=== PATIENT | female | born 1955 | race Caucasian/White ===

== ENCOUNTER 2017-07-13 14:03 | Emergency (ER) | payer BC ==
[2017-07-13 14:55] LABS: #Eosinphils 0.1 thou/uL (0.0-0.7); #Lymphocytes 1.2 thou/uL (1.20-3.40); #Monocytes 0.4 thou/uL (0.11-0.59); #Neutrophils 2.4 thou/uL (1.40-6.50); %Basophils 0.6 % (0.0-1.0); %Lymphocytes 30.5 % (21.0-51.0); %Monocytes 8.9 % (0.0-10.0); Hemoglobin 11.9 g/dL (12.0-16.0); Mean Corpuscular HGB CONC 31.5 g/dL (32.0-36.0); Mean Corpuscular Hemoglobin 27.6 pg (27.0-31.0); Mean Corpuscular Volume 87.4 fl (81.0-99.0); Mean Platelet Volume 7.6 fL (7.4-10.4); Platelet Count 163 thou/uL (130-400); RBC Distribution Width 13.2 % (11.5-14.5); Red Blood Cell (RBC) Count 4.32 mill/uL (4.20-5.40); White Blood Cell (WBC) Count 4.1 thou/uL (4.8-10.8)
[2017-07-13 15:05] LABS: ALT (SGPT) 24 U/L (8-55); AST (SGOT) 37 U/L (5-34); Albumin 3.9 g/dL (3.4-4.8); Alkaline Phosphatase 70 U/L (40-150); Anion Gap 16 mmol/L (10-20); BUN (Urea Nitrogen) 15 mg/dL (9.8-20.1); Bilirubin, Total 0.5 mg/dL (0.2-1.2); Calc. Creatinine Clearance 0 mL/min (70-130); Calcium 10.2 mg/dL (7.8-10.44); Carbon Dioxide 22 mmol/L (23-31); Chloride 103 mmol/L (98-107); Estimated GFR-MDRD 52; Globulin 2.8 g/dL (2.4-3.5); Glucose 139 mg/dL (80-115); Lipase 361 U/L (8-78); Magnesium 1.8 mg/dL (1.6-2.6); Potassium 4.4 mmol/L (3.5-5.1); Protein, Total 6.7 g/dL (6.0-8.3); Sodium 137 mmol/L (136-145)
[2017-07-13 15:06] LABS: CKMB 0.8 ng/mL (0-6.6)
[2017-07-13 15:08] LABS: Troponin I Less than 0.010 ng/mL (< 0.028)
--- NOTE | 2017-08-12 18:00 | EKG ---
Test Reason : Blood Pressure : / mmHG Vent. Rate : 062 BPM Atrial Rate : 062 BPM P-R Int : 166 ms QRS Dur : 176 ms QT Int : 478 ms P-R-T Axes : 068 -43 026 degrees QTc Int : 485 ms Normal sinus rhythm Left axis deviation Left bundle branch block , old Abnormal ECG Baseline movement limits interpretation Confirmed by SYDNIE KAISER D.O. ([id number]), production editor BETHEL CANSECO ([id number]) on 08/12/2017 6:00:14 PM Referred By: Confirmed By:SYDNIE KAISER D.O.
== END 2017-07-13 16:15 | disposition home or self-care (01) ==
LOC: SCSER 14:03
DX: K85.90 Acute pancreatitis without necrosis or infection, unspecified (principal); G43.909 Migraine, unspecified, not intractable, without status migrainosus; E11.9 Type 2 diabetes mellitus without complications; K58.9 Irritable bowel syndrome, unspecified; E78.5 Hyperlipidemia, unspecified; I10 Essential (primary) hypertension; Z79.899 Other long term (current) drug therapy; Z79.4 Long term (current) use of insulin
CPT/HCPCS: 80053; 82553; 83690; 83735; 84484; 85025; 93005; 96360

== ENCOUNTER 2018-01-29 09:46 | Outpatient (CLI) | payer BC ==
--- NOTE | 2018-01-29 12:18 | MRI ---
LUMBAR SPINE MRI WITHOUT CONTRAST: DATE: 01/29/18. COMPARISON: None. HISTORY: Back pain. TECHNIQUE: Multiplanar, multisequence MR imaging of the lumbar spine is provided without contrast. FINDINGS: Edematous degenerative end plate changes are present at L3-4. Assuming 5 lumbar-type vertebral miah s, conus medullaris terminates at the T12-L1 level. At L4-5, there is anterolisthesis measuring approximately 3-4 mm. T12-L1: Intervertebral disk height and signal intensity is within normal limits with no significant central canal or neural foraminal stenosis. L1-2: There is bilateral facet hypertrophy and hypertrophy of th ligamentum flavum. Intervertebral disk height and signal intensity is within normal limits with no significant central canal or neural foraminal stenosis. L2-3: Bilateral facet hypertrophy with hypertrophy of the ligamentum flavum noted. No significant c entral canal or neural foraminal stenosis. L3-4: Moderate bilateral facet hypertrophy with hypertrophy of the ligamentum flavum. There is disk space narrowing, disk desiccation, and disk bulge. No significant central canal stenosis. There is mild right neural foraminal stenosis. L4-5: There is moderate bilateral facet hypertrophy and hypertrophy of the ligamentum flavum. There is disk space narrowing, disk desiccation, and a disk-osteophyte complex with right paracentral and left paracentral annular tears. There is associated mild/moderate central canal stenosis and mild bi lateral neural foraminal stenosis. L5-S1: Mild disk space narrowing. Bilateral facet hypertrophy. No significant central canal or kush ral foraminal stenosis. Visualized retroperitoneal structures demonstrate a circumaortic left renal vein. IMPRESSION: Degenerative change within the lumbar spine, most prominent at the L3-4 and L4-5 levels as described above. POS: MIL
== END 2018-01-29 09:47 | disposition home or self-care (01) ==
LOC: SCSMRI 09:46
PROVIDERS: ATTEND Family Medicine
DX: M51.16 Intervertebral disc disorders with radiculopathy, lumbar region (principal); M47.896 Other spondylosis, lumbar region; M47.897 Other spondylosis, lumbosacral region; M48.061 Spinal stenosis, lumbar region without neurogenic claudication; M99.83 Other biomechanical lesions of lumbar region
CPT/HCPCS: 72148

== ENCOUNTER 2018-02-16 09:11 | Outpatient (CLI) | payer BC | END 2018-02-16 09:12 | disposition home or self-care (01) | LOC: BICMAMMO 09:11 | PROVIDERS: ATTEND Family Medicine | DX: Z12.31 Encounter for screening mammogram for malignant neoplasm of breast (principal); Z80.3 Family history of malignant neoplasm of breast | CPT/HCPCS: 77063; 77067 ==

== ENCOUNTER 2019-01-01 15:26 | Outpatient (CLI) | payer BC | END 2019-01-01 15:27 | disposition home or self-care (01) | LOC: CTENTCT 15:26 | PROVIDERS: ATTEND Otolaryngology Plastic Surgery within the Head & Neck | DX: J32.9 Chronic sinusitis, unspecified (principal) | CPT/HCPCS: 70486 ==

== ENCOUNTER 2019-01-14 10:06 | Outpatient (CLI) | payer BC ==
--- NOTE | 2019-01-14 11:32 | MRI ---
EXAM: Lumbar spine MRI without contrast. HISTORY: Spondylolisthesis lumbar region, low back pain radiating down to left hip COMPARISON: 01/29/2018 FINDINGS: Multiplanar, multisequence MRI examination of the lumbar spine is performed. The conus medullaris region appears unremarkable. Extensive abnormal marrow signal involving the L3 and L4 particularly the endplate regions showing wo rsening compared to the prior study. I favor this to be severe type I endplate changes although the possibility of discitis cannot be totally excluded, correlate with clinical and laboratory findings. T12-L1 disc level: Unremarkable. L1-L2 disc level: Unremarkable. L2-L3 disc level: Unremarkable. L3-L4 disc level: Severe central canal and lateral recess stenosis with moderate bilateral foraminal stenosis. Extensive associated abnormal endplate signal as above. Minimal T2 hyperintensity within the disc. L4-L5 disc level: Moderate to severe central canal and lateral recess stenosis. Associated annular fi ssures. Moderate bilateral foraminal stenosis. L5-S1 disc level: Unremarkable. IMPRESSION: Up to moderate to severe canal, lateral recess, and foraminal stenosis most marked at L3-L4 as well a s changes at L4-L5. Worsening abnormal marrow signal involving L3 and L4 vertebral bodies probably related to worsening type I endplate changes. The possibility of developing discitis cannot be totall y excluded, correlate with clinical and laboratory findings.
--- NOTE | 2019-01-14 12:28 | RAD ---
LUMBAR SPINE SERIES 6 VIEWS INCLUDING FLEXION AND EXTENSION: Date: 01/14/19 HISTORY: Low back pain radiating to left hip. FINDINGS: There are severe arthritic changes of the spine. Marked degenerative changes at the L3-4 and L4-5 lev els. Spondylolisthesis of L4 on L5 of approximately 4-5 mm is seen, not definitely changed between fl exion and extension views. There are degenerative facet changes noted. IMPRESSION: Marked degenerative disc narrowing at L3-4 and L4-5 levels. POS: TPC
== END 2019-01-14 10:07 | disposition home or self-care (01) ==
LOC: SCSMRI 10:06
PROVIDERS: ATTEND Family Medicine
DX: M43.16 Spondylolisthesis, lumbar region (principal); M48.061 Spinal stenosis, lumbar region without neurogenic claudication
CPT/HCPCS: 72100; 72148

== ENCOUNTER 2019-04-09 08:52 | Outpatient (CLI) | payer BC ==
--- NOTE | 2019-04-09 10:10 | MMO ---
Bilateral MAMMO Bilat Screen [facility]. CLINICAL HISTORY: Patient is 63 years old and is seen for screening. The patient has the following family history of breast cancer: paternal grandmother, malignant (generic). The patient has no personal history of cancer. The patient has a history of left Ultrasound Guided Core Biopsy in 2006 - benign and bilateral Breast reduction in 1994. VIEWS: The views performed were: bilateral craniocaudal with tomosynthesis and bilateral mediolateral oblique with tomosynthesis. FILMS COMPARED: The present examination has been compared to prior imaging studies performed at [facility] on 02/09/2015, 02/11/2016, 02/14/2017 and 02/16/2018. This study has been interpreted with the assistance of computer-aided detection. MAMMOGRAM FINDINGS: There are scattered fibroglandular densities. Finding 1: There are stable benign appearing calcifications seen in both breasts. Finding 2: There are stable benign appearing densities seen in both breasts. There are no suspicious masses, suspicious calcifications, or new areas of architectural distortion. IMPRESSION: THERE IS NO MAMMOGRAPHIC EVIDENCE OF MALIGNANCY. A ROUTINE FOLLOW-UP MAMMOGRAM IN 1 YEAR IS RECOMMENDED. THE RESULTS OF THIS EXAM WERE SENT TO THE PATIENT. ACR BI-RADS Category 2 - Benign finding MAMMOGRAPHY NOTE: 1. A negative mammogram report should not delay a biopsy if a dominant of clinically suspicious mass is present. 2. Approximately 10% to 15% of breast cancers are not detected by mammography. 3. Adenosis and dense breasts may obscure an underlying neoplasm. Reported by: EDUARDO HIDALGO MD Electonically Signed: [id number]
== END 2019-04-09 08:53 | disposition home or self-care (01) ==
LOC: BICMAMMO 08:52
PROVIDERS: ATTEND Family Medicine
DX: Z12.31 Encounter for screening mammogram for malignant neoplasm of breast (principal); Z80.3 Family history of malignant neoplasm of breast; Z91.89 Other specified personal risk factors, not elsewhere classified; Z98.890 Other specified postprocedural states
CPT/HCPCS: 77063; 77067

== ENCOUNTER 2019-04-26 15:58 | Outpatient (CLI) | payer BC ==
[2019-04-26 16:51] LABS: Hemoglobin 12.2 g/dL (12.0-16.0); Mean Corpuscular Hemoglobin 28.4 pg (27.0-31.0); Mean Platelet Volume 7.5 fL (7.4-10.4); Platelet Count 203 thou/uL (130-400); RBC Distribution Width 13.6 % (11.5-14.5); Red Blood Cell (RBC) Count 4.31 mill/uL (4.20-5.40); White Blood Cell (WBC) Count 5.9 thou/uL (4.8-10.8)
[2019-04-26 16:54] LABS: Prothrombin Time 13.4 SEC (12.0-14.7)
[2019-04-26 17:18] LABS: Anion Gap 13 mmol/L (10-20); BUN (Urea Nitrogen) 15 mg/dL (9.8-20.1); Calc. Creatinine Clearance 0 mL/min (70-130); Carbon Dioxide 24 mmol/L (23-31); Chloride 108 mmol/L (98-107); Estimated GFR-MDRD 65; Glucose 99 mg/dL (80-115); Potassium 4.6 mmol/L (3.5-5.1); Sodium 140 mmol/L (136-145)
--- NOTE | 2019-04-29 11:40 | EKG ---
Test Reason : Blood Pressure : / mmHG Vent. Rate : 066 BPM Atrial Rate : 066 BPM P-R Int : 166 ms QRS Dur : 160 ms QT Int : 442 ms P-R-T Axes : 069 -41 058 degrees QTc Int : 463 ms Normal sinus rhythm Left axis deviation Left bundle branch block Abnormal ECG When compared with ECG of 13-JUL-2017 14:56, No significant change was found Confirmed by Charlotte MELARA ([id number]) on 04/29/2019 11:39:59 AM Referred By: KALYN Confirmed By:Charlotte MELARA
== END 2019-04-26 15:59 | disposition home or self-care (01) ==
LOC: LABBT 15:58
PROVIDERS: ATTEND Surgery
DX: Z01.818 Encounter for other preprocedural examination (principal); M54.16 Radiculopathy, lumbar region; M48.061 Spinal stenosis, lumbar region without neurogenic claudication
CPT/HCPCS: 80048; 85027; 85610; 85730; 93005; 93010

== ENCOUNTER 2019-05-02 09:20 | Day surgery (SDC) | payer BC ==
[2019-04-26 16:09] VITALS: BMI 29.5
[2019-05-02] MEDS ORDERED: Midazolam HCl 2 mg/2 ml Vial ONE (09:48)
[2019-05-02] MEDS ORDERED: Fentanyl 100 MCG/2 ML VIAL ONE ×3 (09:48→14:26)
[2019-05-02] MEDS ORDERED: Bacitracin Zinc Ointment 30 gm TUBE ONE (10:32)
[2019-05-02] MEDS ORDERED: Sodium Chloride 0.9% 10 ML ONE (10:32)
[2019-05-02] MEDS ORDERED: Scopolamine 1.5 mg/72 hour Patch ONE (10:40)
[2019-05-02] MEDS ORDERED: Thrombin 5000 UNITS/5 ML VIAL ONE (12:01)
[2019-05-02] MEDS ORDERED: Morphine 2 MG/ML SYRINGE SLOW IVP PRN (12:43)
[2019-05-02] MEDS ORDERED: Bisacodyl 10 MG SUPP PR PRN (12:43)
[2019-05-02] MEDS ORDERED: Fleet Enema 133 ML BOT PR PRN (12:43)
[2019-05-02] MEDS ORDERED: Acetaminophen/Codeine 30-300mg Tablet PO PRN (12:43)
[2019-05-02] MEDS ORDERED: HYDROcodone/Acetaminophen 7.5/325 mg Tablet PO PRN (12:43)
[2019-05-02] MEDS ORDERED: Milk Of Magnesia 30 ML UDCUP PO PRN (12:43)
[2019-05-02] MEDS ORDERED: Ondansetron PF 4 MG/2 ML Vial IVP PRN (12:43)
[2019-05-02] MEDS ORDERED: Acetaminophen 325 MG TAB PO PRN (12:43)
[2019-05-02] MEDS ORDERED: Mag-Al 1200 mg/1200 mg/30 ML UDCUP PO PRN (12:43)
[2019-05-02] MEDS ORDERED: tiZANidine HCl 4 MG TAB PO PRN (12:43)
[2019-05-02] MEDS ORDERED: Loratadine 10 MG TAB PO PRN (12:46)
[2019-05-02] MEDS ORDERED: Calcium Carbonate 500 MG ChewTAB PO PRN (12:46)
[2019-05-02] MEDS ORDERED: Loperamide HCl 2 MG CAP PO PRN (12:46)
[2019-05-02] MEDS ORDERED: hydrALAZINE 20 MG/ML VIAL SLOW IVP PRN (12:48)
[2019-05-02] MEDS ORDERED: Ondansetron HCl/PF 4 MG/2 ML Vial IVP PRN (13:35)
[2019-05-02] MEDS ORDERED: Promethazine HCl 25 MG/ML VIAL SLOW IVP PRN (13:35)
[2019-05-02] MEDS ORDERED: Ketorolac Tromethamine 30 MG/ML VIAL IVP PRN (13:35)
[2019-05-02] MEDS ORDERED: Promethazine HCl 25 MG/ML VIAL IM PRN (13:35)
--- NOTE | 2019-05-02 13:44 | OP ---
DATE OF PROCEDURE: 05/02/2019 LABORATORY INSPECTOR: Beto Wilson PA-C PREPROCEDURE DIAGNOSES: Lumbar stenosis with low back and leg pain with lumbar pseudoclaudication. POSTPROCEDURE DIAGNOSES: Lumbar stenosis with low back and leg pain with lumbar pseudoclaudication. PROCEDURES PERFORMED: L3-L4 and L4-L5 laminectomies, partial facetectomies, and foraminotomies. DESCRIPTION OF PROCEDURE: After informed consent was obtained from the patient, the patient was brought to the OR. Proper patient, pause, and identification were carried out. She was placed under excellent general endotracheal anesthesia and positioned prone on the OR table. The L3 through L5 segments was marked out dorsally. We then sterilely cleansed, prepared, and draped the wound. After proper patient, pause, and identification, the wound was then opened with combination of sharp, monopolar, and blunt dissection. The L3, L4, and L5 dorsal spines and lamina were exposed. We then performed L3-L4 and L4-L5 laminectomies, partial facetectomies, and foraminotomies over the L3, L4, and L5 nerve roots. Copious irrigation occurred throughout as did maximizing hemostasis. The wound was then closed in anatomic layers following sprinkling of vancomycin powder. The patient was emerged from anesthesia. Job ID: [id number]
[2019-05-02] MEDS ORDERED: Ketorolac Tromethamine 30 MG/ML VIAL ONE (13:59)
[2019-05-02] MEDS: metFORMIN 500 MG TAB PO SCH (18:12)
[2019-05-02] MEDS: Sodium Chloride 0.9% 1,000 ML IV SCH ×2 (18:13→22:18)
[2019-05-02] MEDS: CEFAZOLIN 2 GM in Premix Bag 1 BAG IVPB SCH (18:13)
[2019-05-02] MEDS: Carvedilol 6.25 MG TAB PO SCH (20:31)
[2019-05-02] MEDS ORDERED: Rosuvastatin 20 MG TAB PO SCH (21:00)
[2019-05-02] MEDS ORDERED: Gabapentin 300 MG CAP PO SCH (21:00)
[2019-05-02] MEDS ORDERED: Latanoprost 0.005% Ophth Soln 2.5 ml Bottle EA EYE SCH (21:00)
[2019-05-03] MEDS: CEFAZOLIN 2 GM in Premix Bag 1 BAG IVPB SCH (02:28)
[2019-05-03] MEDS ORDERED: Multivit, Therapeutic 1 TAB PO SCH (09:00)
[2019-05-03] MEDS: metFORMIN 500 MG TAB PO SCH (10:16)
[2019-05-03] MEDS: Carvedilol 6.25 MG TAB PO SCH (10:16)
[2019-05-03 15:23] VITALS: BP 113/61; TEMP 98.4
[2019-05-03] MEDS: Sodium Chloride 0.9% 1,000 ML IV SCH (16:33)
[2019-05-03] MEDS ORDERED: FLU VACC TS2019-20(65YR UP)/PF 180 MCG/0.5 ML SYRINGE IM ONE (18:15)
[2019-05-03] MEDS ORDERED: Prevnar 13-Val Conj/PF 0.5 ML SYRINGE IM ONE (18:15)
--- NOTE | 2019-05-04 02:17 | DIS ---
DATE OF ADMISSION: 05/02/2019 DATE OF DISCHARGE: 05/03/2019 DISCHARGE DIAGNOSIS: Lumbar stenosis with lumbar radiculopathy. HOSPITAL COURSE: Ms. Causey was admitted to undergo multilevel lumbar laminectomies with Dr. Plummer. Her surgery was without complication. There was no CSF leak. The patient required 1 overnight stay for adequate pain control and improvement in her mobility. At the time of discharge, she had resolution of her leg pain, had incisional back pain, but otherwise was mobilizing well. Appropriate patient education and outpatient followups were provided to the patient and she was pleased with her outcome postoperatively with the understanding to call the office with questions or concerns prior to her next scheduled followup appointment. Job ID: [id number]
[2019-05-09] MEDS ORDERED: Dulaglutide [Trulicity] 0.75 MG SC SCH (09:00)
== END 2019-05-03 16:20 | disposition home or self-care (01) ==
LOC: SDC 09:20 → SJJU 15:52 → SDC 05-03 16:20
PROVIDERS: ATTEND Surgery
PROC: 01NB0ZZ Release Lumbar Nerve, Open Approach (ICD-10-PCS; principal; 2019-05-03)
DX: M48.062 Spinal stenosis, lumbar region with neurogenic claudication (principal); M54.16 Radiculopathy, lumbar region; I44.7 Left bundle-branch block, unspecified; E11.9 Type 2 diabetes mellitus without complications; K50.90 Crohn's disease, unspecified, without complications; Z79.84 Long term (current) use of oral hypoglycemic drugs; Z79.899 Other long term (current) drug therapy; Z88.1 Allergy status to other antibiotic agents; Z88.8 Allergy status to other drugs, medicaments and biological substances; Z91.013 Allergy to seafood; Z91.018 Allergy to other foods
CPT/HCPCS: 76000; J0690; J1885; J2250; J3010; J3370; J3490

== ENCOUNTER 2020-04-13 08:46 | Outpatient (CLI) | payer BC ==
--- NOTE | 2020-04-13 09:45 | MMO ---
Bilateral MAMMO Bilat Screen [facility]. CLINICAL HISTORY: Patient is 64 years old and is seen for screening. The patient has the following family history of breast cancer: paternal grandmother, malignant (generic). The patient has no personal history of cancer. The patient has a history of left Ultrasound Guided Core Biopsy in 2006 - benign and bilateral Breast reduction in 1994. VIEWS: The views performed were: bilateral craniocaudal with tomosynthesis and bilateral mediolateral oblique with tomosynthesis. FILMS COMPARED: The present examination has been compared to prior imaging studies performed at [facility] on 02/11/2016, 02/14/2017, 02/16/2018 and 04/09/2019. This study has been interpreted with the assistance of computer-aided detection. MAMMOGRAM FINDINGS: There are scattered fibroglandular densities. There are benign appearing calcifications seen in both breasts. There are no suspicious masses, suspicious calcifications, or new areas of architectural distortion. IMPRESSION: THERE IS NO MAMMOGRAPHIC EVIDENCE OF MALIGNANCY. A ROUTINE FOLLOW-UP MAMMOGRAM IN 1 YEAR IS RECOMMENDED. THE RESULTS OF THIS EXAM WERE SENT TO THE PATIENT. ACR BI-RADS Category 2 - Benign finding MAMMOGRAPHY NOTE: 1. A negative mammogram report should not delay a biopsy if a dominant of clinically suspicious mass is present. 2. Approximately 10% to 15% of breast cancers are not detected by mammography. 3. Adenosis and dense breasts may obscure an underlying neoplasm. Reported by: SALTY OLMOS MD Electonically Signed: [id number]
== END 2020-04-13 08:47 | disposition home or self-care (01) ==
LOC: BICMAMMO 08:46
PROVIDERS: ATTEND Family Medicine
DX: Z12.31 Encounter for screening mammogram for malignant neoplasm of breast (principal); Z80.3 Family history of malignant neoplasm of breast; Z91.89 Other specified personal risk factors, not elsewhere classified; Z98.890 Other specified postprocedural states
CPT/HCPCS: 77063; 77067